=== PATIENT | female | born 1985 | race Caucasian/White ===

== ENCOUNTER 2024-03-11 06:34 | Inpatient (IN) ==
[2024-03-11] MEDS ORDERED: LIDOCAINE 1% LOCAL 20 ML VIAL INFIL PRN (07:07)
[2024-03-11] MEDS: LACTATED RINGER'S 1,000 ML IV PRN (07:31)
[2024-03-11 07:53] LABS: Hematocrit (blood only) 35.9 % (37.0-47.0); Hemoglobin 11.9 g/dl (12.0-16.0); Mean Corpuscular Hemoglobin 28.1 pg (25.0-34.0); Mean Corpuscular Hgb Conc 33.1 g/dL (32.0-36.0); Mean Corpuscular Volume 84.7 fL (80.0-100.0); Mean Platelet Volume 11.4 fL (9.4-12.4); Platelet Count 219 K/uL (130-400); RDW Coefficient of Variation 14.5 % (11.5-14.5); RDW Standard Deviation 44.5 fL (36.4-46.3); Red Blood Count 4.24 M/uL (4.20-5.40); White Blood Count 16.12 K/ul (4.8-10.8)
--- NOTE | 2024-03-11 08:03 | History & Physical Report ---
Date of Service March 11, 2024 Assessment & Plan (1) Normal labor: Plan fetus category one, arom. anticipate . Admission and Anticipated Discharge Date Admission Date: March 11, 2024 History of Present Illness Chief Complaint: labor Primary Care Provider: [facility] Patient is a 38yowf with iup at 41 1/7 weeks who presents in active labor. STarted with contractions around 8pm last night and really picked up at 3am. WAs 6cm on admission with Dr. Candelaria. no lof or vb. and Delivery Plans AMA Weekly NST's @ 36 weeks Need for Rhogam d/t Rh negative mother -Rhogam given 12/30/23- MK IOL Post-dates 5/ OB Labs: Blood Type A Negative 09/09/23 Antibody Screen NEGATIVE 12/30/23 Hemoglobin 10.3 g/dl (12.0-16.0) L 12/30/23 Hematocrit 30.7 % (37.0-47.0) L 12/30/23 Mean Corpuscular Volume 84.5 fL (80.0-100.0) 09/09/23 Platelet Count 287 K/uL (130-400) 09/09/23 Rubella IgG Antibody Immune (Immune) 09/09/23 Rapid Plasma Reagin Nonreactive (Nonreactive) 09/09/23 Hepatitis B Surface Antigen. NON-REACTIVE (NON-REACTIVE) 09/09/23 Hepatitis C Antibody (EIA) NON-REACTIVE (NON-REACTIVE) 09/09/23 HIV (1&2) Ag and Ab Confirmation NON-REACTIVE (NON-REACTIVE) 09/09/23 Glucose 1 Hour 50 gm Load 141 mg/dl (70-130) H 09/09/23 OB Optional Labs: Chlamydia trachomatis RNA Not Detected (NotDetected) 09/09/23 Neisseria gonorrhoeae RNA Not Detected (NotDetected) 09/09/23 Thyroid Stimulating Hormone (TSH) 2.170 uIu/ml (0.300-4.500) 08/16/19 gbs neg Allergies Allergy/AdvReac Type Severity Reaction Status Date / Time No Known Allergies Allergy NONE Verified 03/10/24 10:18 Home Medications Medication Instructions Recorded Confirmed Type vitamin no.102-iron 90 1 cap PO DAILY 09/09/23 03/11/24 History mg-folate 1 mg-dha 200 mg capsule hydrocortisone 1 % topical cream 1 applic topical DAILY PRN rash 10/13/23 03/10/24 Rx (Proctocort) #28.4 grams hydrocortisone acetate 25 mg 25 mg ME DAILY PRN hemorrhoids #12 10/13/23 03/10/24 Rx rectal suppository (Anucort-HC) ea Patient History Medical History (Updated 03/11/24 @ 08:06 by Sandhya Villarreal MD, FACOG) Vaginitis Vaginal delivery (05/20/12) Intrauterine (05/20/12) Breast mass, right Anemia Pap smear vag w [facility]-US History of chicken pox Surgical History S/P wisdom tooth extraction Family History (Updated 09/01/23 @ 15:08 by Anh Cruz) Father Kidney disease Mother Anemia Denies family history of Ovarian cancer Breast cancer Colorectal cancer Social History (Updated 09/01/23 @ 15:22 by Anh Cruz) Smoking Status: Never smoker Do You Dip or Chew Tobacco: No; Hx Alcohol Use: No Hx Substance Use: No Preferred Language: [place] Verdean Communication Ability: Effective Etl Bi Developer Required: No Beliefs That Will Affect Care: None marital status: marital status details: Francisco J [phone] Current Living Situation: Spouse Current Living Situation Comment: lives with spouse, 3 children, outdoor cats current occupational status: employed current occupation: self employed Other Information That Helps Us Care for You: No Feels Safe at Home: Yes Safety Concerns: Feels Safe At This Time OB History Past Pregnancies Del. Date GA wks Lbr Lgth wt Sex Type del Anes Place Del Prov ? Comment 05/10/10 40 9 6-0 F None [facility] Dr. Edenilson Callahan 05/19/12 40 6 7-2 F None [facility] Dr. Diana Callahan 07/26/14 38 2 6-8 F None [facility] Dr. Meliton Callahan Physical Exam Constitutional: WD/WN, vitals as above Gastrointestinal (Abdomen): soft, nt, gravid Psychiatric: A+Ox3, euthymic affect Genitourinary: cx--8/100/-1 arom--clear toco--q2min efm--120s with mod variability, accels present, early decels with contractions. Results & Data Vital Signs (Past 12 Hours) Vital Signs Pulse Resp BP 03/11/24 07:45 20 03/11/24 07:45 20 03/11/24 07:19 20 03/11/24 06:55 80 135/63 Coding Level of Care Code None Diagnoses Normal labor O80; Z37.9
[2024-03-11] MEDS: OXYTOCIN 30 UNITS/NSS 30 UNITS/500 ML BAG IV PRN (09:30)
[2024-03-11] MEDS ORDERED: IBUPROFEN 600 MG TAB PO PRN (09:41)
[2024-03-11] MEDS ORDERED: oxyCODONE/ACETAMINOPHEN 5mg/325mg TAB PO PRN (09:41)
[2024-03-11] MEDS ORDERED: OXYTOCIN 30 UNITS/NSS 30 UNITS/500 ML BAG IV PRN (09:41)
[2024-03-11] MEDS ORDERED: HYDROCORTISONE ACETATE 25 MG SUPP PR PRN (09:41)
[2024-03-11] MEDS ORDERED: ACETAMINOPHEN 325 MG TAB PO PRN (09:41)
[2024-03-11] MEDS ORDERED: bisacodyL 10 MG SUPP PR PRN (09:41)
--- NOTE | 2024-03-11 09:43 | Delivery Summary ---
Vaginal Delivery Summary Date of Service March 11, 2024 Vaginal Delivery Summary Pre-operative Diagnosis: at 41 weeks active labor Post-operative Diagnosis: same Procedure: QBL: 156cc Anesthesia: none Procedure: The patient presented to labor and delivery in active labor. She was admitted and underwent amniotomy for clear fluid at 8cm. She progressed to c/c/0. The patient pushed for two contractions to deliver a viable female infant in doa/mervat position. A nuchal cord x 2 was easily reduced. The nose and mouth were bulb suctioned on the perineum and the rest of the was then delivered without difficulty. The baby was vigorous. The nose and mouth were again bulb suctioned and the infant was placed in the maternal abdomen for drying and attention. Cord was clamped and cut at one minute of life. Cord blood and segment obtained. Placenta delivered spontaneous, intact with a three vessel cord. a true knot was noted. Cervix/sulci/rectum/perineum were intact. Hemostasis obtained with dilute pitocin and fundal massage. Apgars were 8/9. Mother and baby doing well at the end of the delivery. [facility] Vaginal Delivery Charge Delivery Type Details: [facility]
[2024-03-11] MEDS: DIPHTHER/TETAN/PERTUS Vaccine (Tdap, Adol/Adult) 0.5mL IM ONE (12:29)
[2024-03-11] MEDS: BENZOCAINE 20% SPRY 85 APPLN/85 GM CAN EXT PRN (13:18)
[2024-03-11] MEDS: DOCUSATE SODIUM 100 MG CAP PO SCH (20:11)
[2024-03-12 06:44] LABS: Hematocrit (blood only) 31.7 % (37.0-47.0); Hemoglobin 10.7 g/dl (12.0-16.0)
--- NOTE | 2024-03-12 07:23 | Obstetrical Progress Note ---
Date of Service March 12, 2024 Assessment & Plan (1) Encounter for assessment: visit type: exam of lactating mother Qualified Code(s): Z39.1 - Encounter for care and examination of lactating mother Plan Doing well. Desires d/c later today. Instructions given. Day #:: 1 Subjective Ambulation: ambulating normally Voiding: no voiding problems Passing Gas:: Yes Diet Tolerance:: regular diet Lochia:: Small Feeding Type:: breast feeding Physical Exam Constitutional WD/WN, vitals as above Cardiovascular Extremities: no calf tenderness and no edema Gastrointestinal (Abdomen) soft, nt, nd, ff/nt 2 below u Psychiatric A+Ox3, euthymic affect Results & Data Vital Signs (Past 12 Hours) Vital Signs Temp Pulse Resp BP Pulse Ox O2 Del Method 03/12/24 03:40 36.7 C 62 18 103/67 99 Room Air 03/11/24 23:12 36.8 C 52 L 16 94/62 L 99 Room Air 03/11/24 20:00 36.8 C 63 16 103/61 99 Room Air
[2024-03-12] MEDS: PRENATAL VITAMIN 1 TAB PO SCH (08:29)
[2024-03-12] MEDS ORDERED: bisacodyL 5 MG TABEC PO SCH (20:00)
== END 2024-03-12 14:25 | disposition home or self-care (01) | DRG 807 ==
LOC: OPB 06:34 → 4S1 06:38 → 4E2 11:30